=== PATIENT | male | born 1945 ===

== ENCOUNTER 2018-06-09 13:46 | Emergency (ER) | payer MEDICARE ==
[2018-06-09 14:16] VITALS: BMI 25.0
[2018-06-09 14:24] VITALS: RESP 18; TEMP 98.2
--- NOTE | 2018-06-09 16:05 | ED PDOC ---
Arrival/HPI - General Chief Complaint: Alcohol Ingestion Time Seen by Provider: 06/09/18 13:57 Historian: Patient - History of Present Illness Narrative History of Present Illness (Text): 06/09/18 16:00 A 73 year old male, whose past medical history includes intoxication, presents to the emergency department brought in for public intoxication. Patient was found laying on the floor. Patient confirms he was "drunk on the ground." Patient denies any physical complaints. No PMD Past Medical History - Provider Review Nursing Documentation Reviewed: Yes - Infectious Disease Hx of Infectious Diseases: None - Psychiatric Hx Substance Use: No Family/Social History - Physician Review Nursing Documentation Reviewed: Yes Family/Social History: No Known Family HX Smoking Status: Unknown If Ever Smoked Hx Alcohol Use: Yes Hx Substance Use: No Allergies/Home Meds Allergies/Adverse Reactions: Allergies No Known Allergies Allergy (Verified 06/09/18 15:51) Home Medications: Home Meds Medication Instructions Recorded Confirmed Unobtainable 06/09/18 06/09/18 Review of Systems - Physician Review All systems were reviewed & negative as marked: Yes - Review of Systems Constitutional: absent: Fevers, Night Sweats Respiratory: absent: SOB, Cough Cardiovascular: absent: Chest Pain Gastrointestinal: absent: Abdominal Pain, Diarrhea, Nausea, Vomiting Genitourinary Male: absent: Dysuria, Frequency, Hematuria, Urinary Output Changes Musculoskeletal: absent: Arthralgias, Back Pain, Neck Pain, Myalgias Neurological: absent: Headache, Dizziness Physical Exam - Physical Exam Narrative Physical Exam (Text): Gen: VS reviewed, alert, unkept, intoxicated, mild distress. ENT: normal pharynx Eye: EOMI, PERRL Neck: no JVD, supple, no adenopathy CV: regular rate, regular rhythm, no rubs, no murmur, no gallops, S1, S2, pulses equal and strong Pulm: no distress, clear to auscultation, no wheeze, no rhonchi, breath sounds equal, no rales Abd: soft, nontender, no guarding, no rebound, no rigidity, normal bowel sounds Ext: no edema Skin: good color, no rash, no cyanosis Psych: responds appropriately to questions, normal affect Neuro: oriented x 3, CN2-12 intact grossly, motor intact, sensation intact Vital Signs Reviewed: Yes Vital Signs Temp Pulse Resp BP Pulse Ox 06/09/18 16:52 87 18 115/66 98 06/09/18 14:22 98.2 F 88 18 133/76 100 Temperature: Afebrile Blood Pressure: Normal Pulse: Regular Respiratory Rate: Normal Appearance: Positive for: Unkept, Other (intoxicated) Pain Distress: None Mental Status: Positive for: Alert and Oriented X 3 Finger Stick Blood Glucose: 80 Medical Decision Making ED Course and Treatment: 06/09/18 16:00 Impression: 73 year old male brought in for intoxication. Plan: -- Regular Diet -- Reassess and disposition Prior Visits: Notes and results from previous visits were reviewed. Progress Notes: 06/09/18 16:57 patient is clinically sober with clear speech, tolerated meal in the ED, does not exhibit s/s of acute alcohol withdrawal, stable for dc. - Scribe Statement The provider has reviewed the documentation as recorded by the Julienneibbart Chase Provider Scribe Provider Scribe Attestation: All medical record entries made by the Scribe were at my direction and personally dictated by me. I have reviewed the chart and agree that the record accurately reflects my personal performance of the history, physical exam, medical decision making, and the department course for this patient. I have also personally directed, reviewed, and agree with the discharge instructions and disposition. Disposition/Present on Arrival - Present on Arrival Any Indicators Present on Arrival: No History of DVT/PE: No History of Uncontrolled Diabetes: No Urinary Catheter: No History of Decub. Ulcer: No History Surgical Site Infection Following: None - Disposition Have Diagnosis and Disposition been Completed?: Yes Diagnosis: Alcohol intoxication Disposition: HOME/ ROUTINE Disposition Time: 16:58 Patient Plan: Discharge Patient Problems: Current Active Problems Problem Status Onset Alcohol intoxication Acute Condition: STABLE Print Language: LATVIAN Additional Instructions: ZEFERINO PARKER, thank you for letting us take care of you today. Your provider was Dr. Ramin Worley and you were treated for alcohol intoxication. The emergency medical care you received today was directed at your acute symptoms. If you were prescribed any medication, please fill it and take as directed. It may take several days for your symptoms to resolve. Return to the Emergency Department if your symptoms worsen, do not improve, or if you have any other problems. Please contact your doctor or call one of the physicians/clinics you have been referred to that are listed on the Patient Visit Information form that is included in your discharge packet. Bring any paperwork you were given at discharge with you along with any medications you are taking to your follow up visit. Our treatment cannot replace ongoing medical care by a primary care provider outside of the emergency department. Thank you for allowing the [facility] team to be part of your care today. If you had an X-Ray or CT scan: A Radiologist will review the ED reading if any change in treatment is needed we will contact you. If you had a blood, urine, or wound culture: It will take several days for the results, if any change in treatment is needed we will contact you. If you had an STI test: It will take 48 hours for the results. Please call after 1 week if you have not heard back. Referrals: PCP,NO [Primary Care Provider] - Follow up with primary [facility] [employer] [facility] [Outside] - Follow up with primary Cassidy Aden MD [Medical Doctor] - Follow up with primary Forms: [employer] (Kazakh)
[2018-06-09 16:53] VITALS: BP 115/66; PULSE 87; O2SAT 98
== END 2018-06-09 17:04 | disposition home or self-care (01) ==
LOC: ED 13:46 → MERGE 13:46 → ED 17:04
DX: F10.129 Alcohol abuse with intoxication, unspecified (principal)

== ENCOUNTER 2018-06-09 20:04 | Emergency (ER) | payer MEDICARE ==
[2018-06-09 20:05] VITALS: BMI 25.0
--- NOTE | 2018-06-09 20:19 | ED PDOC ---
Arrival/HPI - General Historian: Patient, Parent, EMS <Harley French - Last Filed: 06/10/18 01:26> <Edvin Chavez - Last Filed: 06/10/18 06:46> - General Chief Complaint: Alcohol Ingestion Time Seen by Provider: 06/09/18 20:14 - History of Present Illness Narrative History of Present Illness (Text): 06/09/18 20:15 73 y/o male, no significant pmh, nkda, +etoh on breath, biba for etoh intoxication x 1 hour. Pt. was seen in the ER about 3 hours ago for etoh, found sleeping at another person's house front porch, stated that he hit his posterior head, no neck/back/extremity pain, no numbness or tingling, admits drinking and alcohol on breath, no rash, no night sweat, no other medical or psychological complaints. (Harley French) Past Medical History - Provider Review Nursing Documentation Reviewed: Yes - Infectious Disease Hx of Infectious Diseases: None - Psychiatric Hx Substance Use: No <Harley French - Last Filed: 06/10/18 01:26> Family/Social History - Physician Review Nursing Documentation Reviewed: Yes Family/Social History: Unknown Family HX Smoking Status: Unknown If Ever Smoked Hx Alcohol Use: Yes Hx Substance Use: No <Harley French - Last Filed: 06/10/18 01:26> Allergies/Home Meds <Harley French - Last Filed: 06/10/18 01:26> <Edvin Chavez - Last Filed: 06/10/18 06:46> Allergies/Adverse Reactions: Allergies No Known Allergies Allergy (Verified 06/09/18 15:51) Home Medications: Home Meds Medication Instructions Recorded Confirmed Unobtainable 06/09/18 06/09/18 Review of Systems - Review of Systems Constitutional: absent: Fatigue, Fevers Eyes: absent: Vision Changes ENT: absent: Hearing Changes Respiratory: absent: SOB, Cough Cardiovascular: absent: Chest Pain Gastrointestinal: absent: Abdominal Pain, Nausea, Vomiting Musculoskeletal: absent: Arthralgias, Back Pain Skin: absent: Rash, Pruritis Neurological: absent: Headache, Dizziness Psychiatric: absent: Anxiety, Depression, Suicidal Ideation <Harley French - Last Filed: 06/10/18 01:26> Physical Exam - Systems Exam Head: Present: Atraumatic, Normocephalic, Tenderness (+posterior occipital tenderness) Pupils: Present: PERRL Extroacular Muscles: Present: EOMI Conjunctiva: Present: Normal Ears: Present: NORMAL TM, Normal Canal. No: Erythema Mouth: Present: Moist Mucous Membranes Pharnyx: Present: Normal. No: ERYTHEMA, EXUDATE, TONSILS ENLARGED Nose (Internal): Present: Normal Inspection, No Active Bleeding. No: Rhinorrhea , Septal Hematoma, Epistaxis Neck: Present: Normal Range of Motion, Trachea Midline. No: Meningeal Signs, MIDLINE TENDERNESS, Paraspinal Tenderness Respiratory/Chest: Present: Clear to Auscultation, Good Air Exchange. No: Respiratory Distress, Accessory Muscle Use Cardiovascular: Present: Regular Rate and Rhythm, Normal S1, S2. No: Murmurs Abdomen: No: Tenderness, Distention, Peritoneal Signs, Rebound, Guarding Back: Present: Normal Inspection Upper Extremity: Present: Normal Inspection, Normal ROM, NORMAL PULSES, Neurovascularly Intact, Capillary Refill < 2s. No: Cyanosis, Edema, Deformity Lower Extremity: Present: Normal Inspection, NORMAL PULSES, Normal ROM, Neurovascularly Intact, Capillary Refill < 2 s. No: Edema, Tenderness, Swelling , Deformity Neurological: Present: GCS=15, CN II-XII Intact, Speech Normal, Motor Func Grossly Intact, Memory Normal Skin: Present: Warm, Dry, Normal Color. 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 Dehydration vs. Alcohol intoxication -Labs -CT Head -IV Banana bag -Observe and reassess 06/09/18 21:00 -Pt. agitated, using cane to hit the [employer]IST[employer]EVIEVE Duval, witnessed by me, ativan 2mg and haldol 5mg ordered. 06/09/18 23:37 -Labs are non-significant, CK within normal limit. -CT Head ordered and pending result. 06/10/18 01:01 -CT Head show There is no intracranial hemorrhage or mass. No abnormal extra- axial or parenchymal fluid collections. -Pt. is sleeping well, easily arousable, no focal neurological deficits, no signs of withdrawal, 06/10/18 01:45 -Pt. is calm. -Case endorsed and sign out to Dr. Chavez, pending for the patient to get sober and dispo. (Harley French) 06/10/18 06:05 Patient is awake, alert, and ambulatory with a steady gait. Patient is stable for discharge. On re-evaluation, patient feels better and is in no acute distress. I have discussed the results and plan with the patient, who expresses understanding. Patient in agreement with plan to be discharged home. Patient is stable for discharge. Patient was instructed to follow up with physician or return if symptoms worsen or new concerning symptoms arise. (Edvin Chavez) - Lab Interpretations Lab Results: 06/09/18 22:05 06/09/18 22:05 Lab Results 06/09/18 22:05: WBC 4.7, RBC 3.61, Hgb 12.1 L, Hct 35.3 L, MCV 97.8, MCH 33.5, MCHC 34.3, RDW 16.0 H, Plt Count 222, MPV 10.4, Gran % 55.3, Lymph % (Auto) 32.3 , [place] % (Auto) 9.3 H, Eos % (Auto) 2.3, Baso % (Auto) 0.8, Gran # 2.62, Lymph # (Auto) 1.5, [place] # (Auto) 0.4, Eos # (Auto) 0.1, Baso # (Auto) 0.04 06/09/18 22:05: Sodium 142, Potassium 3.8, Chloride 103, Carbon Dioxide 26, Anion Gap 17, BUN 10, Creatinine 0.6 L, Est GFR ( Amer) > 60, Est GFR ( Non-Af Amer) > 60, Random Glucose 95, Calcium 9.2, Magnesium 1.9, Total Bilirubin 0.8, AST 57, ALT 19, Alkaline Phosphatase 61, Total Creatine Kinase 189, Total Protein 7.4, Albumin 4.2, Globulin 3.3, Albumin/Globulin Ratio 1.3 - RAD Interpretation Radiology Orders: 06/09/18 20:23 HEAD W/O CONTRAST [CT] Stat FINDINGS: Brain: There is cerebral and cerebellar cortical volume loss compatible with the patient's age. Scattered low density areas in the periventricular white matter and basal ganglia probably reflect chronic small vessel ischemic changes. Vascular calcifications are present. There is no intracranial hemorrhage or mass. No abnormal extra-axial or parenchymal fluid collections. Posterior fossa is unremarkable. Ventricles: The ventricles and basilar cisterns are prominant likely related to chronic volume loss. Bones/joints: Normal. No acute fracture. Sinuses: Mild mucosal thickening in the ethmoid sinuses present. Mastoid air cells: Normal as visualized. No mastoid effusion. Soft tissues: Normal. IMPRESSION: There are low-attenuation areas in the periventricular white matter and basal ganglia, probably reflecting chronic ischemic changes. However, if there is clinical concern for an acute infarction, followup MRI could be useful. Thank you for allowing us to participate in the care of your patient. Dictated and Authenticated by: Awa Torres MD 06/10/2018 12:08 AM Eastern Time ([place] & [place]) (Harley French) - Medication Orders Current Medication Orders: Discontinued Medications Haloperidol Lactate (Haldol) 5 mg IVP STAT STA PRN Reason: Protocol Stop: 06/09/18 21:01 Last Admin: 06/09/18 21:07 Dose: 5 mg IVP Administration Document 06/09/18 21:07 CNR (Rec: 06/09/18 21:13 CNR [id number]) Charges for Administration # of IVP Administrations 1 Multivitamins/Vitamin C 10 ml/Thiamine HCl 100 mg/ Folic Acid 1 mg/ Dextrose 1, 011.2 mls @ 1,000 mls/hr IV .Q1H1M ONE Stop: 06/09/18 21:23 Last Admin: 06/09/18 22:18 Dose: 1,000 mls/hr eMAR Start Stop Document 06/09/18 22:18 CNR (Rec: 06/09/18 22:19 CNR [id number]) Intravenous Solution Start Date 06/09/18 Start Time 22:19 Lorazepam (Ativan) 2 mg IM ONCE ONE PRN Reason: Protocol Stop: 06/09/18 21:01 Last Admin: 06/09/18 21:07 Dose: 2 mg IM Administration Charges Document 06/09/18 21:07 CNR (Rec: 06/09/18 21:12 CNR [id number]) Injection Site MAR Injection Site Left Deltoid Charges for Administration # of IM Administrations 1 - PA / SECURITY NURSE / Resident Statement SWETA has reviewed & agrees with the documentation as recorded. <Harley French - Last Filed: 06/10/18 01:26> - PA / SECURITY NURSE / Resident Statement SWETA has reviewed & agrees with the documentation as recorded. / has examined the patient and agrees with the treatment plan. <Edvin Chavez - Last Filed: 06/10/18 06:46> Disposition/Present on Arrival - Present on Arrival Any Indicators Present on Arrival: No History of DVT/PE: No History of Uncontrolled Diabetes: No Urinary Catheter: No History of Decub. Ulcer: No History Surgical Site Infection Following: None - Disposition Have Diagnosis and Disposition been Completed?: Yes Disposition Time: 23:38 <Harley French - Last Filed: 06/10/18 01:26> - Present on Arrival Any Indicators Present on Arrival: No - Disposition Have Diagnosis and Disposition been Completed?: Yes <Edvin Chavez - Last Filed: 06/10/18 06:46> - Disposition Diagnosis: Alcohol intoxication, Head injury Patient Problems: Current Active Problems Problem Status Onset Alcohol intoxication Acute Head injury Acute Condition: GOOD Referrals: PCP,NO [Primary Care Provider] - Follow up with primary Forms: [email or web address] (Pakistani)
[2018-06-09] MEDS ORDERED: Multivitamin (MVI) 10 ML, Thiamine 100 MG, Folic Acid 1 MG in Dextrose 5% In Water 1,00... IV ONE (20:23)
[2018-06-09 21:17] VITALS: TEMP 97.6
[2018-06-09 22:37] LABS: BASO # 0.04 K/mm3 (0.0-2.0); BASO % 0.8 % (0.0-3.0); EOS # 0.1 (0.0-0.7); EOS % 2.3 % (1.5-5.0); GRAN # 2.62 (1.4-6.5); GRAN % 55.3 % (50.0-68.0); HEMOGLOBIN 12.1 g/dL (14.0-18.0); LYMPH # 1.5 (1.2-3.4); LYMPH % 32.3 % (22.0-35.0); MEAN CELL VOLUME 97.8 fl (80.0-105.0); MEAN CORPUSCULAR HEMOGLOBIN 33.5 pg (25.0-35.0); MEAN CORPUSCULAR HGB CONC 34.3 g/dl (31.0-37.0); MEAN PLATELET VOLUME 10.4 fl (7.0-11.0); MONO # 0.4 (0.1-0.6); MONO % 9.3 % (1.0-6.0); RBC 3.61 10^6/uL (3.5-6.1); WHITE BLOOD COUNT 4.7 10^3/ul (4.5-11.0)
[2018-06-09 22:42] LABS: ALB/GLOB RATIO 1.3 (1.1-1.8); ALBUMIN 4.2 g/dL (3.0-4.8); ALT/SGPT 19 U/L (7-56); AST/SGOT 57 U/L (17-59); BLOOD UREA NITROGEN 10 mg/dL (7-21); CALCIUM 9.2 mg/dL (8.4-10.5); GFR AFRICAN-AMERICAN > 60; GFR NON-AFRICAN AMERICAN > 60
[2018-06-10 06:49] VITALS: BP 116/79; PULSE 80; RESP 19; O2SAT 100
--- NOTE | 2018-06-10 08:57 | CT ---
Date of service: 06/09/2018 PROCEDURE: CT HEAD WITHOUT CONTRAST. HISTORY: etoh, head injury COMPARISON: None available. TECHNIQUE: Axial computed tomography images were obtained through the head/brain without intravenous contrast. Radiation dose: Total exam DLP = 978 mGy-cm. This CT exam was performed using one or more of the following dose reduction techniques: Automated exposure control, adjustment of the mA and/or kV according to patient size, and/or use of iterative reconstruction technique. FINDINGS: HEMORRHAGE: No intracranial hemorrhage. BRAIN: No mass effect or edema. Chronic microvascular changes. Moderate atrophy VENTRICLES: Unremarkable. No hydrocephalus. CALVARIUM: Unremarkable. PARANASAL SINUSES: Unremarkable as visualized. No significant inflammatory changes. MASTOID AIR CELLS: Unremarkable as visualized. No inflammatory changes. Soft tissue densities are seen in the external auditory canals most likely representing the ear wax. OTHER FINDINGS: The report concurs with the preliminary [facility] report IMPRESSION: No acute findings
== END 2018-06-10 06:48 | disposition home or self-care (01) ==
LOC: ED 20:04 → MERGE 20:04 → ED 06-10 06:48
DX: F10.129 Alcohol abuse with intoxication, unspecified (principal); S09.90XA Unspecified injury of head, initial encounter; W22.8XXA Striking against or struck by other objects, initial encounter; Y92.9 Unspecified place or not applicable
CPT/HCPCS: 70450; 80053; 82550; 83735; 85025; 96372; 96374; 99284; J1630; J2060; J3411; J7070